=== PATIENT | male | born 1945 | race Caucasian/White ===

== ENCOUNTER 2018-07-02 07:53 | Day surgery (SDC) | payer OTHER ==
[~2018-07-02 07:53] MED LIST: GABAPENTIN100 MG PO; GLIPIZIDE5 MG PO; METFORMIN HCL500 M1 PO; METOPROLOL SUCC50 MG PO; ZOCOR20 MG PO
== END 2018-07-02 16:50 | disposition home or self-care (01) ==
LOC: AMB-ENDOS 07:53
DX: D12.8 Benign neoplasm of rectum (principal); K64.1 Second degree hemorrhoids; I10 Essential (primary) hypertension